=== PATIENT | female | born 1970 | race Caucasian/White ===

== ENCOUNTER 2018-10-06 20:21 | Emergency (ER) | payer SELFPAY ==
[~2018-10-06] VITALS: Wt 76.0 kg
[2018-10-06 20:41] VITALS: BP 131/70; PULSE 94; RESP 20
[2018-10-06] MEDS ORDERED: KETOROLAC 60 MG INJ IM STA (22:47)
--- NOTE | 2018-10-06 23:00 | ERD ---
ER Documentation Chief Complaint Chief Complaint RIGHT FOOT TO HIP PAIN; LEFT ARM PAIN S/P FALL HPI Patient is a 47 years old female with past medical history of IVs mellitus resenting to the clinic status post fall. Patient reports walking on the street when she slipped and fell on a water surface landed on the sidewalk. Patient reports landing on her right lower extremity with her left arm behind her back. She ports of 9 out of 10 right foot and ankle pain, 5 out of 10 right hip pain, and 7 out of 10 left elbow pain. She denies taking any OTC medication came [facility] to the hospital for further evaluation. She denies stating that she has tubal ligation. ROS All systems reviewed and are negative except as per history of present illness. Medications Home Meds Active Scripts Meloxicam* (Meloxicam*) 7.5 Mg Tablet, 7.5 MG PO DAILY, #30 TAB Prov:MELLISSA SALAS PA-C 10/07/18 PMhx/Soc Diabetes mellitus type II. Tubal ligation History of Surgery: No Anesthesia Reaction: No Hx Neurological Disorder: No Hx Respiratory Disorders: No Hx Cardiac Disorders: No Hx Psychiatric Problems: No Hx Miscellaneous Medical Probl: No Hx Alcohol Use: No Hx Substance Use: No Hx Tobacco Use: No Smoking Status: Never smoker FmHx Family History: No diabetes, No coronary disease, No other Physical Exam Vitals Vital Signs Date Temp Pulse Resp B/P (MAP) Pulse Ox O2 O2 Flow FiO2 Time Delivery Rate 10/06/18 98.3 94 20 131/70 99 20:41 (90) Physical Exam Const: No acute distress Head: Atraumatic Resp: Clear to auscultation bilaterally Cardio: Regular rate and rhythm, no murmurs Neur: Awake and alert Psych: Normal Mood and Affect Left Elbow Exam: Tenderness to palpation. No edema, no gross deformity, skin intact. Right Hip Exam: Tenderness to palpation. No edema, no gross deformity, skin intact. Right Ankle Exam: Tenderness to palpation. No edema, no gross deformity, skin intact. Right Foot Exam: Tenderness to palpation with edema, no gross deformity, skin intact. Results 24 hrs Laboratory Tests Test 10/06/18 23:48 POC Beta HCG, Qualitative NEGATIVE Current Medications Medications Dose Sig/Kelly Start Time Status Last (Trade) Ordered Route PRN Stop Time Admin Dose Reason Admin Ketorolac 60 mg ONCE STAT 10/06/18 DC 10/06/18 Tromethamine IM 22:47 23:57 (Toradol) 10/06/18 22:51 Procedures/MDM Patient was seen and evaluated for falling injury. Patient requested images to rule out fracture. Images are grossly normal with swelling noted; no signs of f racture. Stable and ready for discharge. ICE and Leg elevation. Continue using crutches. Rest. Departure Diagnosis: Primary Impression: Fall with no significant injury Encounter type: initial encounter Qualified Codes: W19.XXXA - Unspecified fall, initial encounter Condition: Stable Patient Instructions: Fall, Uncertain Cause Referrals: [facility] Additional Instructions: Paciente aconseja volver a Departamento de urgencias inmediatamente para sntomas nuevos o que empeoran . Paciente aconseja posteriores con el PCP en 2-3 mayo . Paciente verbaliza la comprehensin y est de acuerdo con el tratamiento y el curso de accin. Si el paciente no tiene ninguna de atencin primaria pueden seguir con [facility] [address] [place] [address] o [facility] + [address] [address] MELLISSA SALAS PA-C October 06, 2018 23:00
[2018-10-07] MEDS ORDERED: MELO7.5T38 PO (00:19)
== END 2018-10-07 00:51 | disposition home or self-care (01) ==
LOC: FTE 20:21
DX: M79.671 Pain in right foot (principal); M79.602 Pain in left arm; M25.551 Pain in right hip; E11.9 Type 2 diabetes mellitus without complications
CPT/HCPCS: 73080; 73510; 73610; 73630; 81025; J1885; 96372